=== PATIENT | female | born 1990 | race Caucasian/White ===

== ENCOUNTER 2019-02-19 17:50 | Emergency (ER) | payer MEDICAID, OTHER ==
--- NOTE | 2019-02-19 21:52 | ED Physician Documentation ---
PD HPI DYSPNEA - Stated complaint Stated Complaint: SOA - Chief complaint Chief Complaint: Resp - History obtained from History obtained from: Patient - History of Present Illness Timing - onset: Last night Timing - onset during: Rest Timing - details: Abrupt onset, Intermittant Pain level now: 0 Associated symptoms: No: Fever, Cough, Chest pain / discomfort Similar symptoms before: Diagnosis (asthma) Recently seen: Not recently seen - Additional information Additional information: had dyspnea last night that she feels is c/w previous asthma exacerbations; she typically has responded to albuterol MDI but she is out of this medication and does not have PMD to follow-up with. She is asymptomatic at the time of this evaluation but requests albuterol MDI rx Review of Systems Constitutional: denies: Fever Cardiac: denies: Chest pain / pressure Respiratory: reports: Dyspnea (resolved). denies: Cough, Wheezing PD PAST MEDICAL HISTORY - Past Medical History Respiratory: Asthma - Past Surgical History Past Surgical History: No - Present Medications Home Medications: Ambulatory Orders Medication Instructions Recorded Confirmed Albuterol Sulfate [Albuterol 2 puffs IH Q4HR PRN #1 hfa.aer.ad 03/09/15 Sulfate Hfa] Azithromycin [Zithromax] 250 mg PO DAILY #6 tablet 03/09/15 predniSONE [Deltasone] 40 mg PO DAILY 5 Days tablet 03/09/15 Albuterol Sulfate [Proair Hfa 2 puffs IH QID PRN #1 hfa.aer.ad 10/09/16 Inhaler] Betamethasone/Propylene Glyc 1 applic TP BID #15 cream..g. 10/09/16 [Betamethasone Dp Aug 0.05% Crm] Dexamethasone [Decadron] 4 mg PO DAILY #5 tablet 10/09/16 Albuterol Sulf [Ventolin Hfa 1 - 2 puffs INH Q4HR PRN #1 inhaler 02/19/19 Inhaler] - Allergies Allergies/Adverse Reactions: Allergies Allergy/AdvReac Type Severity Reaction Status Date / Time No Known Drug Allergies Allergy Verified 02/19/19 18:46 - Social History Does the pt smoke?: No Smoking Status: Never smoker Does the pt drink ETOH?: No Does the pt have substance abuse?: Yes - Immunizations Immunizations are current?: Yes PD ED PE NORMAL - Vitals Vital signs reviewed: Yes - General General: Alert and oriented X 3, No acute distress, Well developed/nourished - Cardiac Cardiac: RRR, No murmur - Respiratory Respiratory: No respiratory distress, Clear bilaterally Results - Vitals Vitals: Vital Signs - 24 hr 02/19/19 02/19/19 02/19/19 18:47 21:29 22:08 Temperature 36.9 C Heart Rate 77 73 71 Respiratory 16 16 16 Rate Blood Pressure 132/82 H 128/84 H O2 Saturation 100 100 100 Oxygen O2 Source Room air PD MEDICAL DECISION MAKING - ED course Complexity details: considered differential, d/w patient Departure - Departure Disposition: 01 Home, Self Care Clinical Impression: Asthma Condition: Good Instructions: ED Reactive Airway Disease Follow-Up: [facility] [Provider Group] [facility] [Provider Group] Prescriptions: Albuterol Sulf [Ventolin Hfa Inhaler] 1 - 2 puffs INH Q4HR PRN #1 inhaler PRN Reason: Shortness Of Air/Wheezing Discharge Date/Time: 02/19/19 22:08
[2019-02-19 22:09] VITALS: BP 128/84
== END 2019-02-19 22:08 | disposition home or self-care (01) ==
LOC: ED 17:50
DX: J45.909 Unspecified asthma, uncomplicated (principal)
CPT/HCPCS: 99283